=== PATIENT | female | born 1980 | race Caucasian/White ===

== ENCOUNTER 2021-06-06 16:53 | Emergency (ER) | payer OTHER ==
[2021-06-06] VITALS (7 sets, daily range): BP systolic 111–162; BP diastolic 65–136
[~2021-06-06] VITALS: Ht 165.1 cm; Wt 68.2 kg
[~2021-06-06 16:53] MED LIST: NO HOME MEDS
== END 2021-06-06 18:40 | disposition home or self-care (01) ==
LOC: ED 16:53
DX: Z00.8 Encounter for other general examination (principal); B19.20 Unspecified viral hepatitis C without hepatic coma